=== PATIENT | male | born 1985 | race Caucasian/White ===

== ENCOUNTER 2024-12-06 06:06 | Emergency (ER) | payer SELFPAY ==
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
[2024-12-06] VITALS (14 sets, daily range): BP systolic 87–154; BP diastolic 51–87; PULSE 78–88; RESP 14–30; O2SAT 85–100; BMI 21.2
--- NOTE | 2024-12-06 06:09 | ECG_ITS ---
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 Measurements Intervals [place] Rate: 81 P: 125 PA: 188 QRS: 70 QRSD: 133 T: 72 QT: 480 QTc: 559 Interpretive Statements SINUS RHYTHM INTRAVENTRICULAR CONDUCTION DELAY [130+ ms QRS DURATION] No previous ECG available for comparison Electronically Signed On 12-06-2024 14:36:06 CDT by Omar Pina M.D. [email or web address] [id number]
--- NOTE | 2024-12-06 06:10 | XRR_ITS ---
PROCEDURE INFORMATION: Exam: XR Chest Exam date and time: 12/06/2024 6:53 AM Age: 39 years old Clinical indication: Device placement; Ett placement (vent status); Additional info: Weakness TECHNIQUE: Imaging protocol: Radiologic exam of the chest. Views: 1 view. COMPARISON: No relevant prior studies available. FINDINGS: Tubes, catheters and devices: Endotracheal tube terminates 6 cm above the qasim. Lungs: Extensive consolidative infiltrate in the left lung. Mild infiltrate in the right lower lobe. Pleural spaces: A left pleural effusion is probably present. Elevation of the left hemidiaphragm or diaphragmatic hernia might be present as well. No pleural effusion. No pneumothorax. Heart/Mediastinum: Unremarkable. No cardiomegaly. Bones/joints: Unremarkable. XR/XR chest 1V portable [id number] IMPRESSION: 1. Intubation. 2. Extensive left-sided pneumonia, mild right-sided infiltrate.
--- NOTE | 2024-12-06 06:10 | ED_ITS ---
HPI - Altered Mental Status 2 General: Chief Complaint: Altered Mental Status Stated Complaint: AMS Time Seen by Provider: 12/06/24 06:09 History of Present Illness: 39-year-old male with unknown medical hi story who presents to the emergency room from senior care by ambulance with altered mental status. Apparently he had been arrested on a parole violation. It was thought that he was intoxicated or high because he had been slightly altered initially but over the weekend he would not eat or drink anything and progressively became worse until point EMS was called. EMS reported that his glucose was 30. Apparently he had been given some oral glucose. When he arrives here he is confused and agitated. At the point when an oxygen saturation was finally picked up it was found that he was hypoxic and so he was intubated emergently. Related Data Home Medications ?Medication ?Instructions ?Recorded ?Confirmed No Known Home Medications 12/06/2411/10 Review of Systems 2 General: Reports: ROS unobtainable due to medical condition and ROS unobtainable due to mental status Physical Exam 2 Narrative: General: Alert, appears very agitated, confused, Skin: Warm, dry. Mottled Head: Normocephalic, atraumatic. Neck: Supple, trachea midline. Eye: Extraocular movements are intact. Ears, nose, mouth and throat: Patient has what appears to be oral glucose caked around his mouth. Mucosa appeared dry otherwise Cardiovascular: Regular, mottled appearing distal extremities Respiratory: Diminished breath sounds on the left. Tachypneic. Gastrointestinal: Soft, Nontender, Non distended Musculoskeletal: Normal ROM, no deformity. Neurological: Patient moves all extremities. No localizing neurologic signs. Most the time he is very agitated. Psychiatric: Unable to assess Course 2 Vital Signs: Vital signs: Vital Signs Pulse Rate 78 12/06/24 07:22 Respiratory Rate 14 12/06/24 07:22 Blood Pressure 129/55 12/06/24 07:20 Pulse Oximetry 100 12/06/24 07:22 Oxygen Delivery Me thod Mechanical Ventil ation 12/06/24 07:22 Fraction of Inspir ed Oxygen 100 12/06/24 07:22 MDM - Altered Mental Status Medical Decision Making Medical decision making: Differential diagnosis including but not limited to and based on the above HPI, review of systems and physical exam: In this patient with altered mental status: Stroke. Hypoglycemia. Metabolic encephalopathy. Infections such as pneumonia, urinary tract infection, Covid-19, Influenza. Electrolyte abnormalities such as hypernatremia. Renal failure / uremia. Hepatic encephalopathy. Hypoxemia. Hypercapnic respiratory failure. Psychosis. Drug or alcohol intoxication. Medication overdose. Orders placed to evaluate differential diagnosis based on the above differential, HPI and physical exam Endotracheal intubation Time: 6:55 AM Confirmed: Patient, procedure, and site correct. Consent: , Emergent. Indication: Respiratory failure. Procedural sedation: Succinylcholine and etomidate . Monitoring: Cardiac, blood pressure, continuous pulse oximetry. Preparation: Pre oxygenated, Inline stabilization of cervical spine maintained, Ensured proper cuff inflation. Technique: Oral intubation: A 8 ET tube was inserted, glydescope, visualized cords and ett passing through cords. . Confirmation of tube placement: Bilateral chest rise, Positive color change indicated on end title CO2. Breath sounds diminished on the left hold tube exam which did not help so readvanced. Chest x-ray showed diminished breath sounds are secondary to consolidation of the left lung and raise hemidiaphragm Post procedure exam: Equal breath sounds. Complications: None. Performed by: Self. Total time: 10 minutes. AB.15/37/54 with an O2 sat of 73% on room air Chest x-ray: Elevated left hemidiaphragm with dense consolidation in the left lung. Films were interpreted by myself the emergency room provider and pending final radiology review. Lab Review: Laboratory results were reviewed and interpreted by myself the emergency room physician. Leukocytosis with white count 15,000. Anemia with a hemoglobin of 9. Severe renal failure with a BUN and creatinine of 129 and 6.1. Hyperkalemia with a potassium of 6.9. He does not have any peaked T's or EKG changes at this time. I reviewed the patient's medical record. Patient has no previous visits here. Reexamination: Patient has worsening models in his distal extremities. He has required some increasing sedation. We are decreasing Levophed at the time of transfer. Increasing sedation. Running 1/3 L of fluids. O2 sats are 100% on an FiO2 of 100% on the ventilator. Transfer: Patient is extremely critical. Likely will need an channel cementer outsole machine/food service. He is going to need emergent dialysis. Acuity is too high for this facility. I discussed this with Dr. Yenni with the hospitalist service and if the patient could not be excepted he would help to stabilize him but he agrees that it is likely best to transfer the patient. I spoke with the channel cementer outsole machine at [facility] in [place]. He has accepted the patient to the ICU. Air ambulance as patient is extremely critical and time of transfer is important Assessment and plan: Acute hypoxemic respiratory failure Metabolic encephalopathy Pneumonia Septic shock Acute renal failure Hyperkalemia Leukocytosis Anemia Hypoglycemia ?Insulin, D50 and calcium gluconate. For hyperkalemia. NG/OG not able to be placed thus far so Kayexalate has not been given ? Intubated emergently. Sats are now on ventilator but he is requiring maximum oxygen. Repeating ABG just prior to transfer -2.5 L normal saline bolus initially. With severe volume depletion and additional liter of fluids was given prior to transfer. -Broad-spectrum antibiotics were administered. Zyvox and meropenem -Sepsis quality measures. -Lactic acid with a reflex was ordered. -Blood cultures were ordered. ?I reevaluated the patient's volume status after sepsis fluids were given. ?Patient's glucose initially had been back up but went back down D10 has been given both for hyperkalemia and for hypoglycemia. -I discussed the patient with the accepting physician on-call. - Discussed findings and plan with patient. Answered any questions. - All laboratory values were reviewed and interpreted personally by myself, the ER physician - All imaging was reviewed and interpreted personally by myself, the ER physician. - Evaluation and treatment of this problem were appropriate in the emergency setting Critical Care: -I spent a total of >65 minutes of critical care time managing the patient, independent of any other practitioner. -The time involved in the performance of separately reportable procedures was not counted towards critical care time. Lab Data 12/06/24 06:36 12/06/24 06:36 Laboratory Results WBC 15.37 10^3/uL (3.29-11.43) H 12/06/24 06:36 RBC 3.24 10^6/uL (3.85-5.65) L 12/06/24 06:36 Hgb 9.00 g/dL (11.27-16.99) L 12/06/24 06:36 Hct 28.1 % (37-53) L 12/06/24 06:36 MCV 86.7 fl (82-101) 12/06/24 06:36 MCH 27.8 pg (27-33) 12/06/24 06:36 MCHC 32.0 g/dL (30-55) 12/06/24 06:36 RDW 14.1 % (12.1-15.1) 12/06/24 06:36 Plt Count 243 10^3/cmm (157-399) 12/06/24 06:36 MPV 10.9 fL (7.4-10.4) H 12/06/24 06:36 Lymph % (Auto) Not Reportable 12/06/24 06:36 Dickey % (Auto) Not Reportable 12/06/24 06:36 Lymph # (Auto) Not Reportable 12/06/24 06:36 Dickey # (Auto) Not Reportable 12/06/24 06:36 Total Counted 100 (0-100) 12/06/24 06:36 Atypical Lymphs % 0.0 % (0-5) 12/06/24 06:36 Absolute Neutrophils 11.7 10^3/cmm (1.4-6.5) H 12/06/24 06:36 Segmented Neutrophils 48 % 12/06/24 06:36 Band Neutrophils 28.0 % 12/06/24 06:36 Absolute Lymphocytes 1.4 10^3/cmm (1.2-3.4) 12/06/24 06:36 Lymphocytes (Manual) 9 % 12/06/24 06:36 Monocytes (Manual) 2.0 % 12/06/24 06:36 Absolute Monocytes 0.3 10^3/cmm (0.1-0.6) 12/06/24 06:36 Eosinophils (Manual) 0 % 12/06/24 06:36 Absolute Eosinophils 0.0 10^3/cmm (0.0-0.7) 12/06/24 06:36 Basophils (Manual) 0.0 % 12/06/24 06:36 Absolute Basophils 0.0 10^3/cmm (0.0-0.2) 12/06/24 06:36 Metamyelocytes 4.0 % 12/06/24 06:36 Myelocytes 4.0 % 12/06/24 06:36 Promyelocytes 3.0 % 12/06/24 06:36 Blast Cells 2 % (0-0) H* 12/06/24 06:36 Platelet Estimate Normal (Normal) 12/06/24 06:36 Specimen Type Arterial 12/06/24 06:33 Sample Site Radial, right 12/06/24 06:33 ABG pH 7.15 (7.35-7.45) L* 12/06/24 06:33 ABG pCO2 36.8 mmHg (35-45) 12/06/24 06:33 ABG pO2 54.2 mmHg (80.0-100.0) L 12/06/24 06:33 ABG PO2/FiO2 Ratio 258 12/06/24 06:33 ABG HCO3 12.7 mmol/L (22-26) L 12/06/24 06:33 ABG O2 Saturation 74.6 12/06/24 06:33 ABG Base Excess -15.1 mmol/L (-2.0-2.0) L 12/06/24 06:33 Sloan Test Pos 12/06/24 06:33 A-a O2 Gradient 6.6 mmHg (5-10) 12/06/24 06:33 Hematocrit 27.3 % (42-52) L 12/06/24 06:33 Hgb O2 Saturation 73.3 % (95-100) L 12/06/24 06:33 Carboxyhemoglobin 1.0 %THgb (0.4-20.1) 12/06/24 06:33 Methemoglobin 0.8 % (0.4-1.5) 12/06/24 06:33 Total Hemoglobin 8.9 g/dL (14-18) L 12/06/24 06:33 Sodium 122.0 mmol/L (131-143) L 12/06/24 06:33 Potassium 5.8 mmol/L (3.5-5.0) H 12/06/24 06:33 Glucose 105.0 mg/dL (70-115) 12/06/24 06:33 Ionized Calcium 0.7 mmol/L (1.1-1.4) L 12/06/24 06:33 O2 Delivery Device Room air 12/06/24 06:33 FiO2 21.0 % 12/06/24 06:33 Chest Painting Leader ID [email or web address] 12/06/24 06:33 Sodium 124 mmol/L (136-145) L 12/06/24 06:36 Potassium 6.9 mmol/L (3.5-5.1) H* 12/06/24 06:36 Chloride 79 mmol/L (98-107) L 12/06/24 06:36 Carbon Dioxide 14 mmol/L (22-29) L 12/06/24 06:36 Anion Gap 37.9 (5-19) H 12/06/24 06:36 BUN 129 mg/dL (6-20) H* 12/06/24 06:36 Creatinine 6.1 mg/dL (0.7-1.2) H* 12/06/24 06:36 GFR Calculation 10.4 mL/min (90-130) L 12/06/24 06:36 Glucose 124 mg/dL (65-115) H 12/06/24 06:36 Calculated Osmolality 301 mOsm/kg (285-295) H 12/06/24 06:36 Lactic Acid 6.7 mmol/L (0.5-2.2) H* 12/06/24 06:36 Calcium 5.8 mg/dL (8.5-10.5) L* 12/06/24 06:36 Total Bilirubin 2.0 mg/dL (0.15-1.2) H 12/06/24 06:36 AST 630 U/L (0-40) H 12/06/24 06:36 ALT 203 U/L (0-41) H 12/06/24 06:36 Alkaline Phosphatase 177 U/L (40-130) H 12/06/24 06:36 Troponin T Baseline 30 ng/L (0-15) H 12/06/24 06:36 Total Protein 7.1 g/dL (6.6-8.7) 12/06/24 06:36 Albumin 2.7 g/dL (3.5-5.2) L 12/06/24 06:36 Globulin 4.4 g/dL (1.3-4.6) 12/06/24 06:36 Urine Color Clarence (Yellow) A 12/06/24 07:25 Urine Appearance Turbid (CLEAR) A 12/06/24 07:25 Urine pH 5.0 (5-7) 12/06/24 07:25 Ur Specific [place] 1.020 (1.005-1.030) 12/06/24 07:25 Urine Protein 2+ (Negative) A 12/06/24 07:25 Urine Glucose (UA) Negative (Normal) 12/06/24 07:25 Urine Ketones Negative (Negative) 12/06/24 07:25 Urine Blood 2+ (Negative) A 12/06/24 07:25 Urine Nitrate Positive (Negative) A 12/06/24 07:25 Urine Bilirubin 2+ (Negative) H 12/06/24 07:25 Urine Urobilinogen 1.0 mg/dL (Negative) 12/06/24 07:25 Ur Leukocyte Esterase 1+ (Negative) A 12/06/24 07:25 Urine RBC 3-5 /hpf (0-2) 12/06/24 07:25 Urine WBC 0-5 /hpf (0-5) 12/06/24 07:25 Ur Squamous Epith Cells 11-20 /hpf (0-5) H 12/06/24 07:25 Amorphous Sediment Not Reportable 12/06/24 07:25 Urine Bacteria None seen /hpf (NONE) 12/06/24 07:25 Hyaline Casts 81.08 /lpf 12/06/24 07:25 Coarse Granular Casts 25-40 /lpf H 12/06/24 07:25 Salicylates < 0.3 mg/dL (3-10) L 12/06/24 06:36 Urine Opiates Screen Negative ng/mL (Negative) 12/06/24 07:25 Acetaminophen < 5.0 ug/mL (10-30) L 12/06/24 06:36 Ur Barbiturates Screen Negative ng/mL (Negative) 12/06/24 07:25 Ur Phencyclidine Scrn Negative ng/mL (Negative) 12/06/24 07:25 Ur Amphetamines Screen Positive ng/mL (Negative) H 12/06/24 07:25 U Benzodiazepines Scrn Negative ng/mL (Negative) 12/06/24 07:25 Urine Cocaine Screen Negative ng/mL (Negative) 12/06/24 07:25 U Marijuana (THC) Screen Positive ng/mL (Negative) H 12/06/24 07:25 Ethyl Alcohol < 10 mg/dL (0-10) 12/06/24 06:36 Serum Ketones Negative (Negative) 12/06/24 06:36 Influenza A (PCR) Negative (Negative) 12/06/24 06:22 Influenza Type B (PCR) Negative (Negative) 12/06/24 06:22 RSV (PCR) Negative (Negative) 12/06/24 06:22 SARS-CoV-2 (PCR) Negative (Negative) 12/06/24 06:22 XR interpretation done by ED provider, pending radiology final review Discharge Plan Discharge Patient Disposition: Xfer Short-Term Hosp Clinical Impression: Pneumonia, Acute hypoxemic respiratory failure, Acute renal failure, Acute hyperkalemia, Acute metabolic encephalopathy, Metabolic acidosis, Lactic acidosis, Septic shock, Hyponatremia, Anemia, Leukocytosis Condition: Stable Patient Instructions: Altered Mental Status (ED) Print Language: Afghan Coding Level of Care Code ED Bill Collector for Jonathon Orozco
[2024-12-06] MEDS: ketamine 100 mg/mL Inj 5 mL 70 MG IVP (06:39)
[2024-12-06 06:46] LABS: ABG PCO2 36.8 mmHg (35-45); Alveolar-Arterial Oxygen Gradi 6.6 mmHg (5-10); Arterial Blood Gas Hematocrit 27.3 % (42-52); Blood Gas Allen Test Pos; Blood Gas Operator Identificat gerca; Blood Gas Sample Site Radial, right; Blood Gas Sample Type Arterial; Carboxyhemoglobin 1.0 %THgb (0.4-20.1); Glucose Level-ABG 105.0 mg/dL (70-115); HCO3 ABG 12.7 mmol/L (22-26); Ionized Calcium Level - ABG 0.7 mmol/L (1.1-1.4); Methemoglobin 0.8 % (0.4-1.5); Oxygen Saturation ABG 74.6; PO2 ABG 54.2 mmHg (80.0-100.0); PO2 FiO2 Ratio Arterial Blood 258; Potassium Level - ABG 5.8 mmol/L (3.5-5.0); Sodium Level - ABG 122.0 mmol/L (131-143)
[2024-12-06 06:46] LABS: Hematocrit 28.1 % (37-53); Hemoglobin 9.00 g/dL (11.27-16.99); Mean Corpuscular HGB Conc 32.0 g/dL (30-55); Mean Corpuscular Hemoglobin 27.8 pg (27-33); Mean Corpuscular Volume 86.7 fl (82-101); Platelet Count 243 10^3/cmm (157-399); Red Blood Count 3.24 10^6/uL (3.85-5.65); White Blood Count 15.37 10^3/uL (3.29-11.43)
[2024-12-06 06:48] LABS: ABG PH Result 7.15 (7.35-7.45)
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
[2024-12-06] MEDS: norepinephrine 4 MG/250 ML BAG 37.5 MG IV (07:08)
[2024-12-06] MEDS: midazolam hcl 100 MG/100 ML BAG IV (07:08)
[2024-12-06] MEDS: succinylcholine 20 mg/mL SDV 10mL 100 MG IVP (07:09)
[2024-12-06] MEDS: etomidate 2 mg/mL INJ SDV 10 mL 20 MG IVP (07:09)
[2024-12-06 07:10] LABS: Respiratory Syncytial Virus Ce NEGATIVE (Negative); SARS-CoV-2 PCR NEGATIVE (Negative)
[2024-12-06 07:26] LABS: Lactic Sepsis W/Reflex 6.7 mmol/L (0.5-2.2)
[2024-12-06 07:27] LABS: Troponin(5th) Baseline 30 ng/L (0-15)
[2024-12-06 07:28] LABS: Slide Review Slide Review Perform
[2024-12-06 07:32] LABS: Glucose Urine UA Negative (Normal); Nitrate Urine Positive (Negative); Specific Gravity, Urine 1.020 (1.005-1.030)
[2024-12-06 07:35] LABS: Absolute Segmented Neutrophil 7.4 10/cmm (1.6-7.1); Atypical Lymphs 0.0 % (0-5); Band Neutrophils Absolute 4.3 10^3/cmm (0.0-1.2); Reflex Lactate Order REFLEX LACTIC ORDERD; Total Cells Counted 100 (0-100)
[2024-12-06 07:37] LABS: Alanine Aminotransferase 203 U/L (0-41); Albumin Level 2.7 g/dL (3.5-5.2); Alkaline Phosphatase 177 U/L (40-130); Anion Gap 37.9 (5-19); Aspartate Amino Transferase 630 U/L (0-40); Carbon Dioxide 14 mmol/L (22-29); Chloride 79 mmol/L (98-107); Creatinine Clr Calc Pharmacy 17.5740; Globulin 4.4 g/dL (1.3-4.6); Glucose 124 mg/dL (65-115); Sodium 124 mmol/L (136-145); Total Protein 7.1 g/dL (6.6-8.7)
[2024-12-06 07:39] LABS: PCP Screen Urine Negative (Negative)
[2024-12-06] MEDS: methylPREDNISolone sod succ 125 mg/2 mL INJ IVP (07:39)
[2024-12-06] MEDS: linezolid premix 600 MG/300 ML PREMIX 300 MG IV (07:41)
[2024-12-06 07:47] LABS: Acetaminophen < 5.0 ug/mL (10-30); Alcohol Level < 10 mg/dL (0-10); Osmolality Calculated 301 mOsm/kg (285-295); Salicylate < 0.3 mg/dL (3-10)
[2024-12-06 07:48] LABS: Calcium 5.8 mg/dL (8.5-10.5)
[2024-12-06 07:49] LABS: Blood Urea Nitrogen 129 mg/dL (6-20); Potassium 6.9 mmol/L (3.5-5.1)
[2024-12-06 07:54] LABS: UA Slide Review UA Slide Review Perf
[2024-12-06] MEDS: insulin regular-human 100 units/1 mL 10 UNIT IVP (08:03)
[2024-12-06] MEDS: calcium gluconate 0.1 gm/mL 10% SDV 10mL 1 GM IVP (08:10)
[2024-12-06 08:11] LABS: Ketone (Acetest) Serum Negative (Negative)
[2024-12-06] MEDS: fentaNYL 1,000 MCG/100 ML BAG 50 MCG (08:37)
[2024-12-06 08:47] LABS: ABG PCO2 59.9 mmHg (35-45); Alveolar-Arterial Oxygen Gradi 53.0 mmHg (5-10); Arterial Blood Gas Hematocrit 28.2 % (42-52); Blood Gas Operator Identificat glc; Blood Gas Sample Site Brachial, left; Blood Gas Sample Type Arterial; Carboxyhemoglobin 0.5 %THgb (0.4-20.1); Glucose Level-ABG 154.0 mg/dL (70-115); HCO3 ABG 14.2 mmol/L (22-26); Ionized Calcium Level - ABG 0.8 mmol/L (1.1-1.4); Methemoglobin 0.8 % (0.4-1.5); Oxygen Saturation ABG 98.7; PO2 ABG 233.0 mmHg (80.0-100.0); PO2 FiO2 Ratio Arterial Blood 233; Potassium Level - ABG 5.2 mmol/L (3.5-5.0); Sodium Level - ABG 123.0 mmol/L (131-143)
[2024-12-06 08:48] LABS: ABG PH Result 6.98 (7.35-7.45)
--- NOTE | 2024-12-06 12:09 | ECG_ITS ---
[facility] Test Date: 2024-12-06 Pat Name: Miguel Medley Department: Room: Gender: Male Crime Scene Investigator: : 1985 Requested By: Ethel Aleman Order Number: [id number] Mariah MD: Omar Pina M.D. Measurements Intervals [place] Rate: 81 P: 93 KS: 171 QRS: 75 QRSD: 113 T: 50 QT: 480 QTc: 557 Interpretive Statements SINUS RHYTHM POSSIBLE OLD INFERIOR MYOCARDIAL INFARCTION [30 ms Q WAVE IN II/aVF] NO SIGNIFICANT CHANGE Electronically Signed On 12-06-2024 14:47:16 CDT by Omar Pina M.D. [email or web address]
== END 2024-12-06 09:29 | disposition short-term general hospital (02) ==
PROVIDERS: Emergency Provider Emergency Medicine
DX: J18.9 Pneumonia, unspecified organism (principal); J96.01 Acute respiratory failure with hypoxia; N17.9 Acute kidney failure, unspecified; E87.5 Hyperkalemia; G93.41 Metabolic encephalopathy; E87.20 Acidosis, unspecified; E87.1 Hypo-osmolality and hyponatremia; D64.9 Anemia, unspecified; D72.829 Elevated white blood cell count, unspecified; A41.9 Sepsis, unspecified organism; R65.21 Severe sepsis with septic shock; Z11.52 Encounter for screening for COVID-19
CPT/HCPCS: 31500; 36415; 36416; 36600; 51702; 71045; 80051; 80053; 80306; 80307; 81001; 82009; 82330; 82805; 82962; 83605; 84484; 85007; 85025; 87040; 87070; 87077; 87150; 87186; 87205; 87637; 93005; 94002; 94640; 94799; 96365; 96366; 96367; 96375; 99291; J0330; J0612; J1815; J2020; J2185; J2250; J2919; J3010; J3490; J7030; J7613; J7799; J9999